=== PATIENT | male | born 1975 | race Caucasian/White ===

== ENCOUNTER 2020-09-29 13:32 | Emergency (ER) | payer OTHER ==
[2020-09-29 13:52] VITALS: BP 131/74; PULSE 77; TEMP 98.9; BMI 25.0
[2020-09-29] MEDS ORDERED: SODIUM BICARBONATE 4.2% 5 MEQ/10 ML DISP.SYRIN IVPUSH ONE ×2 (14:09→14:12)
[2020-09-29] MEDS ORDERED: LIDOCAINE HCL 1%, 10 MG/ML (20ML VIAL) ONE (14:09)
[2020-09-29] MEDS ORDERED: LIDOCAINE HCL 1%, 10 MG/ML (50 mL VIAL) SQ ONE (14:12)
[2020-09-29] MEDS ORDERED: NAPROXEN 250 MG TABLET PO ONE (15:35)
[2020-09-29] MEDS ORDERED: NAPROXEN 250 MG TABLET ONE (15:38)
== END 2020-09-29 15:45 | disposition home or self-care (01) ==
LOC: FER 13:32
PROC: 0H9FXZZ Drainage of Right Hand Skin, External Approach (ICD-10-PCS; principal; 2020-09-29)
PROC: 3E033NZ Introduction of Analgesics, Hypnotics, Sedatives into Peripheral Vein, Percutaneous Approach (ICD-10-PCS; 2020-09-29)
DX: L03.012 Cellulitis of left finger (principal)
CPT/HCPCS: 87070; 87186; 87205; 99285-25